=== PATIENT | female | born 1980 | race African-American/Black ===

== ENCOUNTER 2022-05-23 01:14 | Emergency (ER) | payer OTHER ==
[2022-05-23 01:24] VITALS: BP 117/77; PULSE 104; RESP 18; TEMP 98.2; BMI 26.4
== END 2022-05-23 03:01 | disposition home or self-care (01) ==
LOC: JER 01:14
DX: N61.1 Abscess of the breast and nipple (principal)
CPT/HCPCS: 99283-25

== ENCOUNTER 2024-07-17 04:57 | Emergency (ER) | payer SELFPAY ==
[2024-07-17 05:18] VITALS: BP 123/95; PULSE 89; RESP 18; TEMP 98.8; BMI 27.7
== END 2024-07-17 09:40 | disposition home or self-care (01) ==
LOC: JER 04:57
DX: R05.9 Cough, unspecified (principal); R09.89 Other specified symptoms and signs involving the circulatory and respiratory systems; R06.02 Shortness of breath
CPT/HCPCS: 71046-TC-FY; 99283-25